=== PATIENT | female | born 1985 | race Caucasian/White ===

== ENCOUNTER 2017-10-09 17:41 | Emergency (ER) | payer OTHER ==
[~2017-10-09] VITALS: Ht 167.6 cm; Wt 65.3 kg
[~2017-10-09 17:41] MED LIST: ATARAX,VISTARIL25 MG PO; DILAUDID2 MG PO; EXPECTA PRENAT1 EACH PO; HYDROCODON-ACE1 EAC7 PO; IBUPROFEN800 MG PO; LEVAQUIN750 MG PO; NO HOME MEDS; NOHOMEMEDS; ZOFRAN4 MG PO
[2017-10-09 18:14] LABS: HEMATOCRIT 41.6 % (36.0-46.0); MCH 34.1 PG (29.0-34.0); MCHC 35.6 G/DL (30.0-36.0); MCV 95.9 FL (83-99); MEAN PLAT.VOLUME 10.8 uM^3 (9.5-12.4); PLATELET COUNT 163 K/uL (156-360); RBC DIS.WIDTH-CV 10.8 % (11.8-14.6); RBC DIS.WIDTH-SD 38.6 % (39-53); RED BLOOD COUNT 4.34 M/uL (3.80-5.20); WHITE BLOOD COUNT 7.7 K/uL (4.1-10.2)
[2017-10-09 18:23] LABS: CHLORIDE 106 mEq/L (99-109); POTASSIUM 3.6 mEq/L (3.7-5.4); SODIUM 138 mEq/L (136-147)
[2017-10-09 18:24] LABS: GLUCOSE 145 mg/dL (70-99)
[2017-10-09 18:26] LABS: ANION GAP 8 MEQ/L (2-14)
[2017-10-09 18:28] LABS: GFR ESTIMATE (CALCULATED) > 59 mL/min/
[2017-10-09 18:29] LABS: UREA NITROGEN (BUN) 10 mg/dL (9-23)
[2017-10-09 18:36] LABS: QUANTITATIVE HCG 975.3 MIU/ML
[2017-10-09 18:36] LABS: ADD MIUA? YES; BILIRUBIN NEGATIVE; BLOOD MODERATE; COLOR YELLOW ((YELLOW)); GLUCOSE (STRIP) NEGATIVE; KETONES NEGATIVE; LEUKOCYTES NEGATIVE; NITRITE NEGATIVE; PROTEIN (STRIP) NEGATIVE; SPECIFIC GRAVITY 1.009 (1.000-1.030); UROBILINOGEN 0.2 MG/DL (0.2-1.0)
[2017-10-09 18:40] LABS: BACTERIA RARE /HPF; EPITHELIAL CELLS 1+ /HPF; MUCUS TRACE /LPF; WHITE BLOOD CELLS 0-5 /HPF (0-5)
[2017-10-09 21:00] VITALS: BP 135/79
== END 2017-10-09 23:02 | disposition home or self-care (01) ==
LOC: EME 17:41
PROVIDERS: Nurse Practitioner Family
DX: O46.90 Antepartum hemorrhage, unspecified, unspecified trimester (principal); O99.330 Smoking (tobacco) complicating pregnancy, unspecified trimester; F17.210 Nicotine dependence, cigarettes, uncomplicated; Z86.19 Personal history of other infectious and parasitic diseases; Z3A.00 Weeks of gestation of pregnancy not specified
CPT/HCPCS: 76801; 80048; 81003; 84702; 85027; 86850; 86900; 86901; 93005; 99281; 99284; J3010